=== PATIENT | female | born 1995 | race Caucasian/White ===

== ENCOUNTER 2019-07-03 08:47 | Emergency (ER) | payer OTHER ==
--- NOTE | 2019-07-03 09:43 | ED Physician Documentation ---
PD HPI FEMALE - Stated complaint Stated Complaint: FEMALE - Chief complaint Chief Complaint: Abd Pain - History obtained from History obtained from: Patient - History of Present Illness Timing - onset: How many months ago (2) Timing - duration: Months (2) Timing - details: Still present Associated symptoms: Abdominal pain (Crampy), Back pain. No: Fever, Vaginal pain, Vaginal bleeding, Vaginal discharge, Dysuria, Hematuria Contributing factors: Oral contraceptive, Sexually active. No: Recently seen: Clinic - Additional information Additional information: Is a 24-year-old woman who presents with her complaints that for the past 2 months she is been bleeding from her anus and has pain when she goes to the bathroom. She sees bright red blood in the toilet and also when she wipes. This started before they left [place] and has continued. She felt a little lump around the anus so she started using Preparation H but it has not seemed to be helping. [facility] not even look at her anus and told her it was probably hemorrhoids. She is also concerned because She has been having crampy abdominal pain after she eats so the clinic put her on a medication for IBS which she is taking but is not helping. Her last 2 periods May and June have also just been kind of a brown discharge. She has not done a test she is on oral contraceptives. S he has had no nausea or vomiting. No fever. No cough or sore throat. She does complain of some back pain in the muscle along the right paraspinal area around the rib cage that shoots pain up into her shoulder blade. Her felt the palpable knot there. Review of Systems Constitutional: denies: Fever Nose: denies: Congestion Throat: denies: Sore throat Respiratory: denies: Cough GI: reports: Abdominal Pain, Constipation. denies: Nausea, Vomiting, Diarrhea : reports: Control. denies: Dysuria, Frequency, Hematuria, Now EGA PD PAST MEDICAL HISTORY - Present Medications Home Medications: Ambulatory Orders Medication Instructions Recorded Confirmed Phenylephrine HCl/[place] Butter 1 each RC PRN PRN #30 supp.rect 07/03/19 [Preparation H Suppository] - Allergies Allergies/Adverse Reactions: Allergies Allergy/AdvReac Type Severity Reaction Status Date / Time amoxicillin Allergy Anaphylaxis Verified 07/03/19 09:00 Penicillins Allergy Anaphylaxis Verified 07/03/19 09:00 PD ED PE NORMAL - Vitals Vital signs reviewed: Yes - General General: Alert and oriented X 3, No acute distress, Well developed/nourished - HEENT HEENT: Atraumatic, Moist mucous membranes, Other (No scleral icterus) - Cardiac Cardiac: RRR, No murmur, Strong equal pulses - Respiratory Respiratory: No respiratory distress, Clear bilaterally - Abdomen Abdomen: Normal bowel sounds, Soft, Non tender, No organomegaly - Female 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 She says is been 3 days since he had sexual intercourse. Vaginitis screen as well as GC and Chlamydia were obtained. There was slight slight friability to the cervix.) Results - Vitals Vitals: Vital Signs - 24 hr 07/03/19 07/03/19 07/03/19 08:57 12:13 13:48 Temperature 36.7 C 36.9 C 36.8 C Heart Rate 85 68 64 Respiratory 14 16 16 Rate Blood Pressure 110/62 127/70 122/68 O2 Saturation 100 98 99 Oxygen O2 Source Room air - Labs Labs: Laboratory Tests 07/03/19 07/03/19 07/03/19 10:55 11:20 11:20 Serum HCG, Qual Urine Color YELLOW Urine Clarity CLEAR Urine pH 6.5 Ur Specific [place] 1.020 Urine Protein NEGATIVE Urine Glucose (UA) NEGATIVE Urine Ketones NEGATIVE Urine Occult Blood NEGATIVE Urine Nitrite NEGATIVE Urine Bilirubin NEGATIVE Urine Urobilinogen N Ur Leukocyte Esterase NEGATIVE Ur Microscopic Review NOT INDICATED Urine Culture Comments NOT INDICATED Urine HCG, Qual Cancelled C. glabrata (PCR) NEGATIVE C. krusei (PCR) NEGATIVE Usha species DNA NEGATIVE Chlam trachomat DNA PCR NEGATIVE N.gonorrhoeae DNA (PCR) NEGATIVE T. vaginalis (PCR) NEGATIVE NEGATIVE Bact Vaginosis (PCR) NEGATIVE 07/03/19 11:50 Serum HCG, Qual NEGATIVE Urine Color Urine Clarity Urine pH Ur Specific [place] Urine Protein Urine Glucose (UA) Urine Ketones Urine Occult Blood Urine Nitrite Urine Bilirubin Urine Urobilinogen Ur Leukocyte Esterase Ur Microscopic Review Urine Culture Comments Urine HCG, Qual C. glabrata (PCR) C. krusei (PCR) Usha species DNA Chlam trachomat DNA PCR N.gonorrhoeae DNA (PCR) T. vaginalis (PCR) Bact Vaginosis (PCR) PD MEDICAL DECISION MAKING - ED course Complexity details: reviewed results, d/w patient ED course: Urinalysis was negative. Patient's urine test was inconclusive and she had a negative test. She does have a small hemorrhoid at the 12 o'clock position. Is very tender. She is given a prescription for Preparation H suppositories. Did obtain specimens for vaginitis screens gonorrhea and chlamydia screens. Did discuss keeping a food journal to see if she could identify any specific foods leading to her abdominal cramping and bloating. Departure - Departure Disposition: 01 Home, Self Care Clinical Impression: Hemorrhoid Qualifiers: Hemorrhoid type: unspecified Qualified Code(s): K64.9 - Unspecified hemorrhoids Condition: Good Instructions: ANUSOL-HC Suppositories, ED Hemorrhoids Follow-Up: Rocio Vo ARNP [Primary Care Provider] - Codie Sy MD [Provider Admit Priv/Credential] - Prescriptions: Phenylephrine HCl/[place] Butter [Preparation H Suppository] 1 each RC PRN PRN #30 supp.rect PRN Reason: As Needed Per Provider Orders Comments: Uses suppositories after a bowel movement. If you are not seeing any improvement in 5 to 7 days I would recommend follow-up for surgical evaluation. [place] or Dr. Sy is exploration manager you can call their office to see if she can see you. Discharge Date/Time: 07/03/19 13:49
[2019-07-03 11:28] LABS: CLARITY,URINE CLEAR (CLEAR); LEUKOCYTE ESTERASE, URINE NEGATIVE (NEGATIVE); NITRITE,URINE NEGATIVE (NEGATIVE); OCCULT BLOOD,URINE NEGATIVE (NEGATIVE); PH,URINE 6.5 PH (5.0-7.5); PROTEIN,URINE NEGATIVE (NEGATIVE); UROBILINOGEN,URINE N E.U./dL (NORMAL)
[2019-07-03 11:29] LABS: BILIRUBIN,URINE NEGATIVE (NEGATIVE); GLUCOSE, URINE (UA) NEGATIVE (NEGATIVE); KETONES,URINE (UA) NEGATIVE (NEGATIVE)
[2019-07-03 13:06] LABS: HCG,QUALITATIVE BLOOD NEGATIVE
[2019-07-03 13:49] VITALS: BP 122/68
[2019-07-03 16:51] LABS: CANDIDA GROUP DNA NEGATIVE (NEGATIVE); CANDIDA KRUSEI DNA NEGATIVE (NEGATIVE); TRICHOMONAS VAGINALIS DNA NEGATIVE (NEGATIVE)
[2019-07-03 18:36] LABS: TRICHOMONAS VAGINALIS DNA NEGATIVE (NEGATIVE)
== END 2019-07-03 13:49 | disposition home or self-care (01) ==
LOC: ED 08:47
DX: K64.9 Unspecified hemorrhoids (principal)
CPT/HCPCS: 36415; 81001; 81003; 81025; 84703; 87086; 87491; 87591; 87661; 87801; 99283; 99284

== ENCOUNTER 2019-07-29 06:17 | Day surgery (SDC) | payer OTHER ==
[2019-07-29] MEDS ORDERED: LACTATED RINGERS 1,000 ML IV ONE ×2 (06:34→08:48)
[2019-07-29 06:53] LABS: HCG UR QUAL NEGATIVE
--- NOTE | 2019-07-29 07:10 | ANESTHESIA ---
Pre-Anesthesia VS, & Labs - Diagnosis hemmorrhoid - Procedure hemmorrhoidectomy Vital Signs: Temp Pulse Resp BP Pulse Ox 36.8 C 79 16 107/59 L 99 07/29/19 06:36 07/29/19 06:36 07/29/19 06:36 07/29/19 06:36 07/29/19 06:36 Height 5 ft 2 in Weight (kg) 61 kg Body Mass Index 24.7 - NPO >8 hours - Is Patient ?: No Home Medications and Allergies Home Medications: Ambulatory Orders Omeprazole 20 mg PO BID 07/26/19 Omeprazole 20 mg PO BID 07/26/19 Allergies/Adverse Reactions: Allergies Allergy/AdvReac Type Severity Reaction Status Date / Time amoxicillin Allergy Anaphylaxis Verified 07/29/19 06:53 Penicillins Allergy Hives Verified 07/26/19 13:21 Anes History & Medical History - Anesthetic History Family history of Anesthesia Complications: Denies Family history of Malignant Hyperthermia: Denies - Medical History Cardiovascular: reports: None Pulmonary: reports: Asthma (exercise induced, last used inhaler last week) Gastrointestinal: reports: GERD (poorly controlled, will have food come up at times.), Chronic diarrhea, Chronic constipation, Hemorrhoids Urinary: reports: None Neuro: reports: None Musculoskeletal: reports: None Endocrine/Autoimmune: reports: None Blood Disorders: reports: None Skin: reports: None Smoking Status: Never smoker Psychosocial: reports: Anxiety, Alcohol (occassional) Exam General: Alert, Oriented x3, Cooperative, No acute distress Dental: WNL Mouth Openin Fingerbreadth Neck Mobility: Normal Mallampati classification: I Thyromental Distance: greater than 6 cm Respiratory: Lungs clear, Normal breath sounds, No respiratory distress, No accessory muscle use Cardiovascular: Regular rate, Normal S1, Normal S2, No murmurs Mental/Cognitive Status: Alert/Oriented X3, Normal for patient Plan Anesthesia Type: General Consent for Procedure(s) Verified and Reviewed: Yes Code Status: Attempt Resuscitation ASA classification: 2-Mild systemic disease Is this case an emergency?: No
[2019-07-29] MEDS ORDERED: ENOXAPARIN 30 MG/0.3 ML SYRINGE SUBQ ONE (07:16)
[2019-07-29] MEDS ORDERED: BUPIVACAINE 0.5% PF 30 ML VIAL ONE (07:18)
[2019-07-29] MEDS ORDERED: MIDAZOLAM 2 MG/2 ML VIAL IVP ONE (07:40)
[2019-07-29] MEDS ORDERED: fentaNYL 250 MCG/5 ML VIAL IVP ONE (07:40)
[2019-07-29] MEDS ORDERED: DEXAMETHASONE 4 MG/ML VIAL IVP ONE (07:40)
[2019-07-29] MEDS ORDERED: GLYCOPYRROLATE 1 MG/5 ML VIAL IVP ONE (07:40)
[2019-07-29] MEDS ORDERED: ROCURONIUM 50 MG/5 ML VIAL IVP ONE (07:40)
[2019-07-29] MEDS ORDERED: LIDOCAINE-MPF 2% 5 ML VIAL IM ONE (07:40)
[2019-07-29] MEDS ORDERED: PROPOFOL 200 MG/20 ML VIAL IVP ONE (07:40)
[2019-07-29] MEDS ORDERED: ONDANSETRON 4 MG/2 ML VIAL IVP ONE (07:40)
[2019-07-29] MEDS ORDERED: NEOSTIGMINE 1 MG/1 ML 10 ML MDV IVP ONE (07:40)
[2019-07-29] MEDS ORDERED: BUPIVACAINE 0.5% PF 30 ML VIAL INFIL ONE ×2 (07:49)
[2019-07-29] MEDS ORDERED: ONDANSETRON 4 MG/2 ML VIAL IVP PRN (08:42)
[2019-07-29] MEDS ORDERED: HYDROcod/ACETAM 5/325 MG TABLET PO PRN (08:42)
--- NOTE | 2019-07-29 08:49 | IMMEDIATE POSTOPERATIVE NOTE ---
Immediate Postoperative Note - Procedure Note Procedure Date: 07/29/19 Pre-Op Diagnosis: / ext hemorrhoids Procedure: Int / ext hemorrhoidectomy Post-Op Diagnosis: Same Primary Surgeon: Kiersten Anesthesia Type: General ET tube Findings: 2 small int hemorrhoids and an external hemorrhoidal skin tag. Complications: No complications Estimated Blood Loss (in cc): 2 Specimens and Cultures: Hemorrhoids Tag
[2019-07-29] MEDS ORDERED: LACTATED RINGERS 1,000 ML IV SCH (09:00)
--- NOTE | 2019-07-29 09:17 | OPERATIVE REPORT ---
DATE OF SERVICE: 07/29/2019 Physician: Alhaji Burch DO PREOPERATIVE DIAGNOSES 1. Complicated internal hemorrhoids with bleeding. 2. External hemorrhoidal skin tag. POSTOPERATIVE DIAGNOSES 1. Complicated internal hemorrhoids with bleeding. 2. External hemorrhoidal skin tag. PROCEDURE PERFORMED 1. Internal hemorrhoidectomy x2, left lateral and right posterior. 2. A midline anterior external hemorrhoidal tag. SURGEON: Alhaji Burch DO ANESTHESIOLOGY PROVIDER: Ozzie Townsend CRNA. TYPE OF ANESTHESIA: General endotracheal tube with local assist. ESTIMATED BLOOD LOSS: 2 mL FINDINGS: Small internal hemorrhoids as mentioned above and another small anterior hemorrhoidal skin tag. COMPLICATIONS: None. CONDITION: Stable upon transport to recovery. HISTORY: Patient is a 24-year-old white female with bleeding internal hemorrhoids as a result of mul tiple episodes of diarrhea, brought on postprandially that will be evaluated relative to likely gallb ladder disease. Gallbladder ultrasound is pending. DESCRIPTION OF PROCEDURE: Patient was taken to the operating room and under the above-mentioned anes thetic, placed in the lithotomy position with the Yellofin stirrups. After sterile prep and drape, t he anus was dilated digitally and then an anoscope inserted. Some residual stool was quickly evacuat ed and the hemorrhoids were then brought into the fenestrations within the anal dilator and these wer e grasped with Allis clamps and excised using the LigaSure device. They were passed off the operativ e field as specimen. Subsequently, the anterior hemorrhoidal skin tag was likewise transected using the LigaSure device. Local anesthetic was instilled in a 4-quadrant area and a rolled up Kerlix with Xeroform gauze over it placed as a rectal packing to be removed a half an hour after arrival in PACU . TD: 07/29/2019 09:00
[2019-07-29] MEDS ORDERED: fentaNYL 100 MCG/2 ML VIAL ONE (09:21)
[2019-07-29] MEDS ORDERED: HYDROmorphone 0.5 MG/0.5 ML SYRINGE ONE (09:21)
[2019-07-29] MEDS ORDERED: ONDANSETRON 4 MG/2 ML VIAL ONE (10:20)
[2019-07-29 11:34] VITALS: BP 97/85
== END 2019-07-29 06:18 | disposition home or self-care (01) ==
LOC: SDS 06:17
PROVIDERS: ATTEND Surgery
PROC: 06BY3ZC Excision of Hemorrhoidal Plexus, Percutaneous Approach (ICD-10-PCS; principal; 2019-07-29 07:30)
DX: K64.8 Other hemorrhoids (principal); K64.4 Residual hemorrhoidal skin tags; R10.11 Right upper quadrant pain; K21.9 Gastro-esophageal reflux disease without esophagitis; K58.9 Irritable bowel syndrome, unspecified; F41.0 Panic disorder [episodic paroxysmal anxiety]
CPT/HCPCS: 46255; 81025; A9270; J1170; J1650; J3010; J7120

== ENCOUNTER 2019-08-04 10:09 | Emergency (ER) | payer OTHER ==
[2019-08-04 11:13] LABS: BASOPHILS % (AUTO) 0.4 %; EOSINOPHILS # (AUTO) 0.1 10^3/uL (0.0-0.7); EOSINOPHILS % (AUTO) 1.8 %; HGB - HEMOGLOBIN 12.6 g/dL (12.0-16.0); LYMPHOCYTES # (AUTO) 1.2 10^3/uL (1.5-3.5); LYMPHOCYTES % (AUTO) 24.3 %; MEAN CORPUSCULAR HEMOGLOBIN 29.6 pg (27.0-31.0); MEAN CORPUSCULAR HGB CONC 32.4 g/dL (32.0-36.0); MEAN CORPUSCULAR VOLUME 91.5 fL (81.0-99.0); MEAN PLATELET VOLUME 11.4 fL (7.9-10.8); MONOCYTES # (AUTO) 0.5 10^3/uL (0.0-1.0); MONOCYTES % (AUTO) 9.7 %; NEUTROPHILS # (AUTO) 3.1 10^3/uL (1.5-6.6); NEUTROPHILS % (AUTO) 63.6 %; PLT - PLATELET COUNT 176 10^3/uL (130-450); RED BLOOD COUNT 4.25 10^6/uL (4.20-5.40); RED CELL DISTRIBUTION WIDTH 11.9 % (12.0-15.0); WHITE BLOOD COUNT 4.9 x10^3/uL (4.8-10.8)
[2019-08-04 11:26] LABS: CALCIUM 8.9 mg/dL (8.5-10.3); CREATININE 0.8 mg/dL (0.4-1.0)
[2019-08-04 11:43] VITALS: BP 109/65
--- NOTE | 2019-08-04 11:44 | ED Physician Documentation ---
History of Present Illness - Stated complaint Stated Complaint: FEMALE - Chief complaint Chief Complaint: Abd Pain - History obtained from History obtained from: Patient, Family - History of Present Illness Pain level max: 8 Pain level now: 6 Improved by: nothing Worsened by: nothing - Additonal information Additional information: 6 days s/p hemorrhoidectomy. small blood clot today and increased pain. no fevers. no vomiting. taking OTC stool softeners Review of Systems Ten Systems: 10 systems reviewed and negative Constitutional: denies: Fever, Chills Ears: denies: Ear pain Nose: denies: Rhinorrhea / runny nose, Congestion GI: denies: Vomiting, Constipation, Diarrhea Skin: denies: Rash PD PAST MEDICAL HISTORY - Past Medical History Past Medical History: Yes Cardiovascular: None Respiratory: Asthma Neuro: None Endocrine/Autoimmune: None GI: GERD, Chronic diarrhea, Chronic constipation, Hemorrhoids : None HEENT: None Psych: Anxiety, Panic attacks Musculoskeletal: None Derm: None - Present Medications Home Medications: Ambulatory Orders Medication Instructions Recorded Confirmed Omeprazole 20 mg PO BID 07/26/19 07/29/19 oxyCODONE [Roxicodone] 5 mg PO Q6H PRN #30 tablet 07/29/19 oxyCODONE [Roxicodone] 5 mg PO Q6H PRN #30 tablet 07/29/19 Hydrocortisone [Anusol-Hc] 30 gm RC Q8H PRN #1 cream..g. 08/04/19 Opium/Belladonna Alkaloids 1 each RC Q6H PRN #10 supp.rect 08/04/19 [Belladonna-Opium 16.2-30 Supp] Polyethylene Glycol 3350 [Miralax] 17 gm PO DAILY PRN #1 bottle 08/04/19 - Allergies Allergies/Adverse Reactions: Allergies Allergy/AdvReac Type Severity Reaction Status Date / Time amoxicillin Allergy Anaphylaxis Verified 08/04/19 10:16 Penicillins Allergy Hives Verified 08/04/19 10:16 - Social History Does the pt smoke?: No Smoking Status: Never smoker Does the pt drink ETOH?: Yes Does the pt have substance abuse?: No PD ED PE NORMAL - Vitals Vital signs reviewed: Yes - General General: Alert and oriented X 3, No acute distress - HEENT HEENT: Moist mucous membranes - Neck Neck: Supple, no meningeal sign - Abdomen Abdomen: Soft, Non tender, Non distended - Rectal Rectal: Other (normal external exam. no bleeding or swelling. no evidence of abscess. digital exam deferred 2/2 pain) - Derm Derm: Warm and dry - Neuro Neuro: Alert and oriented X 3 - Psych Psych: Normal mood, Normal affect Results - Vitals Vitals: Vital Signs - 24 hr 08/04/19 08/04/19 10:12 11:43 Temperature 36.3 C L 37.1 C Heart Rate 82 62 Respiratory 16 12 Rate Blood Pressure 113/61 109/65 O2 Saturation 100 99 Oxygen O2 Source Room air - Labs Labs: Laboratory Tests 08/04/19 08/04/19 11:09 11:09 WBC 4.9 RBC 4.25 Hgb 12.6 Hct 38.9 MCV 91.5 MCH 29.6 MCHC 32.4 RDW 11.9 L Plt Count 176 MPV 11.4 H Neut # (Auto) 3.1 Lymph # (Auto) 1.2 L [place] # (Auto) 0.5 Eos # (Auto) 0.1 Baso # (Auto) 0.0 Absolute Nucleated RBC 0.00 Nucleated RBC % 0.0 Sodium 137 Potassium 4.6 Chloride 100 L Carbon Dioxide 29 Anion Gap 8.0 BUN 9 Creatinine 0.8 Estimated GFR (MDRD) 88 L Glucose 98 Calcium 8.9 PD MEDICAL DECISION MAKING - ED course Complexity details: considered differential, d/w patient, d/w acquisition consultant ED course: Patient appears to be having pain, postsurgical from a hemorrhoidectomy. Discussed the case with Dr. Burch, general surgery. Will place on Anusol and B&O suppositories. No evidence of abscess, no evidence of infection. No fevers. Patient counseled regarding signs and symptoms for which I believe and urgent re-evaluation would be necessary. Patient with good understanding of and agreement to plan and is comfortable going home at this time This document was made in part using voice recognition software. While efforts are made to proofread this document, sound alike and grammatical errors may occur. Departure - Departure Disposition: 01 Home, Self Care Clinical Impression: S/P hemorrhoidectomy, Post-operative pain Condition: Good Instructions: ED Hemorrhoids Follow-Up: Rocio Vo ARNP [Primary Care Provider] - Alhaji Burch DO [Provider Admit Priv/Credential] - Within 1 week Prescriptions: Hydrocortisone [Anusol-Hc] 30 gm RC Q8H PRN #1 cream..g. PRN Reason: hemorrhoids Opium/Belladonna Alkaloids [Belladonna-Opium 16.2-30 Supp] 1 each RC Q6H PRN #10 supp.rect PRN Reason: rectal pain Polyethylene Glycol 3350 [Miralax] 17 gm PO DAILY PRN #1 bottle PRN Reason: Constipation Comments: Follow-up with Dr. Burch for further care. Return if you worsen. Discharge Date/Time: 08/04/19 11:55
== END 2019-08-04 11:55 | disposition home or self-care (01) ==
LOC: ED 10:09
DX: G89.18 Other acute postprocedural pain (principal)
CPT/HCPCS: 36415; 80048; 85025; 99283; 99284

== ENCOUNTER 2019-08-25 09:02 | Outpatient (CLI) | payer OTHER ==
[2019-08-25] MEDS ORDERED: SINCALIDE 5 MCG VIAL ONE (09:59)
[2019-08-25] MEDS ORDERED: SINCALIDE 1.2 MCG in SODIUM CHLORIDE 0.9% 50 ML IV ONE (12:34)
--- NOTE | 2019-08-25 15:00 | Nuclear Medicine Report ---
Reason: CHRONIC CHOLECYSTITIS Procedure Date: 08/25/2019 Accession Number: [id number] / [id number] Procedure: NM - Hepatobiliary HIDA w/ Rx CPT Code: Final Report FULL RESULT: EXAM: HEPATOBILIARY SCAN WITH CCK/KINEVAC ADMINISTRATION EXAM DATE: 08/25/2019 12:36 PM. CLINICAL HISTORY: CHRONIC CHOLECYSTITIS. Right upper quadrant pain. COMPARISON: None available. TECHNIQUE: Following the intravenous administration of 5.4 mCi of Tc99m Mebrofenin, a hepatobiliary scan was done centered on the liver and gallbladder in multiple sequential images and projections. Following the intravenous administration of 1.2 mcg of CCK/ Kinevac over the course of approximately 60 minutes, dynamic imaging was done and the gallbladder ejection fraction was calculated. FINDINGS: Normal extraction of tracer from the blood pool indicating normal hepatocellular function. The liver size and shape is grossly within normal limits. There is activity visualized within the bile ducts and gallbladder during the first hour. Small bowel activity is present after CCK administration. With CCK administration, the gallbladder demonstrates an effective contraction. The gallbladder ejection fraction is calculated to be 100%, well above the lower limit of normal of 38% for a 60-minute injection. The patient did not report symptoms after CCK administration. No evidence of enteric reflux into the stomach. No significant collection of tracer remaining in the common bile duct by the end of the study. IMPRESSION: 1. Patent cystic duct. 2. Patent common bile duct. 3. Negative for acute or chronic cholecystitis. 4. No enterogastric bile reflux. 5. Gallbladder ejection fraction of 100%. RADIA
== END 2019-08-25 09:03 | disposition home or self-care (01) ==
LOC: DI 09:02
PROVIDERS: ATTEND Surgery
DX: K81.1 Chronic cholecystitis (principal); K82.8 Other specified diseases of gallbladder
CPT/HCPCS: 78227; J7040

== ENCOUNTER 2019-09-14 06:12 | Day surgery (SDC) | payer OTHER ==
[2019-09-14] MEDS ORDERED: fentaNYL 250 MCG/5 ML VIAL IVP ONE (06:13)
[2019-09-14] MEDS ORDERED: MIDAZOLAM 2 MG/2 ML VIAL IVP ONE (06:13)
[2019-09-14] MEDS ORDERED: LACTATED RINGERS 1,000 ML IV ONE (06:24)
[2019-09-14 06:47] LABS: HCG UR QUAL NEGATIVE
[2019-09-14] MEDS ORDERED: LIDO GARGLE 30 ML BOTTLE ONE (07:16)
[2019-09-14] MEDS ORDERED: LIDO GARGLE 30 ML BOTTLE PO ONE (07:36)
[2019-09-14 09:42] VITALS: BP 107/73
== END 2019-09-14 06:13 | disposition home or self-care (01) ==
LOC: SDS 06:12
PROVIDERS: ATTEND Internal Medicine Gastroenterology
PROC: 0DB78ZX Excision of Stomach, Pylorus, Via Natural or Artificial Opening Endoscopic, Diagnostic (ICD-10-PCS; principal; 2019-09-14 07:30)
PROC: 0DJD8ZZ Inspection of Lower Intestinal Tract, Via Natural or Artificial Opening Endoscopic (ICD-10-PCS; 2019-09-14 07:30)
DX: K29.51 Unspecified chronic gastritis with bleeding (principal); K21.9 Gastro-esophageal reflux disease without esophagitis; Z79.899 Other long term (current) drug therapy
CPT/HCPCS: 43239; 45378; 81025; A9270; J3010; J7120

== ENCOUNTER 2019-12-07 13:35 | Emergency (ER) | payer OTHER ==
--- NOTE | 2019-12-07 14:12 | ED Physician Documentation ---
PD HPI HEENT - Stated complaint Stated Complaint: R EAR PX/SORE THROAT - Chief complaint Chief Complaint: Heent - History obtained from History obtained from: Patient - History of Present Illness Timing - onset: Other (24-year-old woman who has chronic issues with her tonsils, tonsil stones especially causing earaches. She has been sick for about 2 weeks. She has had a right-sided sore throat and reactive earache. She had chills at the beginning but not now. She was tested for strep at a clinic, both rapid and culture which were negative per her. She is on doxycycline and on the last day and has improved but not all the way.) Review of Systems Constitutional: reports: Chills (Gone). denies: Fever Nose: denies: Rhinorrhea / runny nose Throat: reports: Sore throat Respiratory: denies: Dyspnea PD PAST MEDICAL HISTORY - Past Medical History Cardiovascular: None Respiratory: Asthma Neuro: None Endocrine/Autoimmune: None GI: GERD, Chronic diarrhea, Chronic constipation, Hemorrhoids : None HEENT: None Psych: Anxiety, Panic attacks Musculoskeletal: None Derm: None - Past Surgical History Past Surgical History: Yes - Present Medications Home Medications: Ambulatory Orders Medication Instructions Recorded Confirmed Omeprazole 20 mg PO BID 07/26/19 12/07/19 Azithromycin [Zithromax] 1 tab PO DAILY #6 tablet 12/07/19 Doxycycline Hyclate 100 mg PO BID 12/07/19 12/07/19 predniSONE [Deltasone] 20 mg PO [id number] #21 tab 12/07/19 - Allergies Allergies/Adverse Reactions: Allergies Allergy/AdvReac Type Severity Reaction Status Date / Time amoxicillin Allergy Anaphylaxis Verified 12/07/19 13:39 Penicillins Allergy Hives Verified 12/07/19 13:39 - Social History Does the pt smoke?: No Smoking Status: Never smoker Does the pt drink ETOH?: Yes Does the pt have substance abuse?: No - Immunizations Immunizations are current?: Yes - POLST Patient has POLST: No PD ED PE NORMAL - Vitals Vital signs reviewed: Yes - General General: Alert and oriented X 3, No acute distress - HEENT HEENT: Other (TMs and oropharynx are visibly normal. Mild submandibular adenopathy.) - Neck Neck: Supple, no meningeal sign - Neuro Neuro: Alert and oriented X 3, Normal speech - Psych Psych: Normal mood, Normal affect Results - Vitals Vitals: Vital Signs - 24 hr 12/07/19 13:40 Temperature 37.3 C Heart Rate 97 Respiratory 16 Rate Blood Pressure 114/67 O2 Saturation 100 Oxygen O2 Source Room air PD MEDICAL DECISION MAKING - ED course ED course: This is most likely viral given the negative strep testing and unremarkable examination. We settled on a delayed course of antibiotics if steroids do not help in the next couple of days. No strep testing was done here since she already had one done as an outpatient. Departure - Departure Disposition: Home, Self Care Clinical Impression: Viral pharyngitis Condition: Good Record reviewed to determine appropriate education?: Yes Instructions: ED Pharyngitis Viral Prescriptions: Azithromycin [Zithromax] 1 tab PO DAILY #6 tablet predniSONE [Deltasone] 20 mg PO [id number] #21 tab Comments: Start the antibiotics in 2 days if not improving. Return for new or worsening symptoms. If you would like to see an ear nose and throat physician about your chronic tonsil issues, the closest is in [place], the phone number is [phone]. For your work, please refer to the following website for guidance for when you can return to work. https://www.cdc.gov/coronavirus/2019-ncov/community/jqhhsfhj-zfcbalrt-qxzjvedv.h tml
[2019-12-07 14:23] VITALS: BP 105/60
== END 2019-12-07 14:21 | disposition home or self-care (01) ==
LOC: ED 13:35
DX: J02.8 Acute pharyngitis due to other specified organisms (principal); K21.9 Gastro-esophageal reflux disease without esophagitis; F41.9 Anxiety disorder, unspecified
CPT/HCPCS: 99282; 99284

== ENCOUNTER 2021-02-17 12:16 | Emergency (ER) | payer OTHER ==
[2021-02-17 12:33] VITALS: BP 109/58
--- NOTE | 2021-02-17 12:41 | ED Physician Documentation ---
History of Present Illness - Stated complaint Stated Complaint: THROAT PX - Chief complaint Chief Complaint: Heent - History obtained from History obtained from: Patient - Additonal information Additional information: Left-sided only sore throat since yesterday associated with a sensation of swollen glands on the left. Of note she is , approximately 8 weeks along without cramping, bleeding, fluid loss. No fevers. Review of Systems Constitutional: denies: Fever, Chills Ears: reports: Ear pain Nose: denies: Rhinorrhea / runny nose Throat: reports: Sore throat PD PAST MEDICAL HISTORY - Past Medical History Cardiovascular: None Respiratory: Asthma Neuro: None Endocrine/Autoimmune: None GI: GERD, Chronic diarrhea, Chronic constipation, Hemorrhoids : None HEENT: None Psych: Anxiety, Panic attacks Musculoskeletal: None Derm: None - Past Surgical History Past Surgical History: Yes - Present Medications Home Medications: Ambulatory Orders Medication Instructions Recorded Confirmed Omeprazole 20 mg PO BID 07/26/19 12/07/19 Azithromycin [Zithromax] 1 tab PO DAILY #6 tablet 12/07/19 Doxycycline Hyclate 100 mg PO BID 12/07/19 12/07/19 predniSONE [Deltasone] 20 mg PO [id number] #21 tab 12/07/19 - Allergies Allergies/Adverse Reactions: Allergies Allergy/AdvReac Type Severity Reaction Status Date / Time amoxicillin Allergy Anaphylaxis Verified 02/17/21 12:33 Penicillins Allergy Hives Verified 02/17/21 12:33 - Social History Does the pt smoke?: No Smoking Status: Never smoker Does the pt drink ETOH?: Yes Does the pt have substance abuse?: No - Immunizations Immunizations are current?: Yes - POLST Patient has POLST: No PD ED PE NORMAL - Vitals Vital signs reviewed: Yes - General General: Alert and oriented X 3, No acute distress - HEENT HEENT: Other (Cobblestoning and mild inflammation of the left tonsil without exudate, left-sided only upper anterior cervical adenopathy.) - Neck Neck: Supple, no meningeal sign, No bony TTP - Neuro Neuro: Alert and oriented X 3, Normal speech Results - Vitals Vitals: Vital Signs - 24 hr 02/17/21 12:29 Temperature 36.9 C Heart Rate 93 Respiratory 15 Rate Blood Pressure 109/58 L O2 Saturation 100 Oxygen O2 Source Room air - Labs Labs: Laboratory Tests 02/17/21 12:49 Group A Strep Rapid Negative Departure - Departure Disposition: 01 Home, Self Care Clinical Impression: Viral pharyngitis Condition: Good Record reviewed to determine appropriate education?: Yes Instructions: ED Pharyngitis Viral Report Pending Comments: Tylenol as needed for symptoms/pain. Drink plenty fluids. Return for new or worsening symptoms. Your rapid strep test is negative. We will culture your throat as well, if a bacterial pathogen is isolated we will call you in a few days to arrange to call in antibiotics.
[2021-02-17 13:14] LABS: RAPID STREP SCREEN Negative (Negative)
== END 2021-02-17 13:30 | disposition home or self-care (01) ==
LOC: ED 12:16
DX: O99.511 Diseases of the respiratory system complicating pregnancy, first trimester (principal); J02.8 Acute pharyngitis due to other specified organisms; B97.89 Other viral agents as the cause of diseases classified elsewhere; Z3A.08 8 weeks gestation of pregnancy
CPT/HCPCS: 87070; 87430; 99283